=== PATIENT | female | born 1955 | race Asian ===

== ENCOUNTER 2019-05-21 07:24 | Inpatient (IN) | payer OTHER ==
[~2019-05-21] VITALS: Ht 167.6 cm; Wt 47.6 kg
[2019-05-21] MEDS ORDERED: FAMOTIDINE/PF INJ 20 MG/2 ML VIAL IV ONE ×2 (07:38→08:00)
[2019-05-21] MEDS ORDERED: ONDANSETRON HCL/PF 4 MG/2 ML VIAL ONE (07:38)
[2019-05-21] MEDS ORDERED: MAG HYDROX/AL HYDROX/SIMETH 30 ML UDC ONE (07:38)
[2019-05-21] MEDS ORDERED: LIDOCAINE VISCOUS 2% UD 15 ML UDC ONE (07:38)
--- NOTE | 2019-05-21 07:40 | NUR ---
BIB MOTHER, C/O SEVERE ABD PAIN, +NV, +DIARRHEA, SINCE LAST NIGHT, 07/18 PS. PATIENT A/OX3, MOANING AND GROANING, BREATHING EVEN AND UNLABORED, NO SOB NOTED, KEPT PATIENT COMFORTABLE, ATTACHED TO THE [place] ENGINEER, CHANGED INTO GOWN. MD AT BEDSIDE.
[2019-05-21] MEDS: IV NS 0.9% 500 ML BAG IV ONE ×2 (07:49→08:08)
[2019-05-21] MEDS ORDERED: LIDOCAINE VISCOUS 2% UD 15 ML UDC MM ONE (08:00)
[2019-05-21] MEDS ORDERED: ONDANSETRON HCL/PF 4 MG/2 ML VIAL IVP ONE ×2 (08:00→11:15)
[2019-05-21] MEDS ORDERED: MAG HYDROX/AL HYDROX/SIMETH 30 ML UDC PO ONE (08:00)
[2019-05-21] MEDS ORDERED: IV NS 0.9% 1,000 ML BAG IV ONE (08:00)
[2019-05-21 08:08] LABS: BASOPHILS % (AUTO) 0.3 % (0.0-2.0); CALCIUM, SERUM 9.5 mg/dL (8.5-10.1); CARBON DIOXIDE 26 mmol/L (21-32); CHLORIDE 101 mmol/L (98-107); CREATININE 1.7 mg/dL (0.6-1.3); GLUCOSE 347 mg/dL (74-106); HEMATOCRIT 37 % (33-45); HEMOGLOBIN 12.8 g/dL (11.5-14.8); LYMPHOCYTES # (AUTO) 0.5 /CMM (0.8-4.8); LYMPHOCYTES % (AUTO) 5.1 % (20.0-44.0); MEAN CORPUSCULAR HGB CONC 34 g/dl (31.0-36.0); MEAN CORPUSCULAR VOLUME 93 fL (82-100); MONOCYTES # (AUTO) 0.2 /CMM (0.1-1.30); MONOCYTES % (AUTO) 2.3 % (2.0-12.0); NEUTROPHILS # (AUTO) 9.9 /CMM (1.8-8.9); NEUTROPHILS % (AUTO) 92.3 % (43.0-81.0); PLATELET COUNT (AUTO) 263 /CMM (150-450); POTASSIUM 3.9 mmol/L (3.5-5.1); SODIUM SERUM 140 mmol/L (136-145); UREA NITROGEN, BLOOD 33 mg/dL (7-18); WHITE BLOOD COUNT (AUTO) 10.7 K/uL (4.3-11.0)
[2019-05-21 08:14] LABS: ALANINE AMINOTRANSFERASE 19 U/L (12-78); ALBUMIN 3.7 g/dL (3.4-5.0); ALKALINE PHOSPHATASE 61 U/L (46-116); ASPARTATE AMINOTRANSFERASE 15 U/L (15-37); BILIRUBIN,DIRECT 0.1 mg/dL (0.0-0.2); BILIRUBIN,TOTAL 0.4 mg/dL (0.2-1.0); LIPASE 958 U/L (73-393); TOTAL PROTEIN, SERUM 7.2 g/dL (6.4-8.2)
--- NOTE | 2019-05-21 08:15 | NUR ---
PATIENT ASSISTED TO RESTROOM. AMBULATORY WITH STEADY GAIT.
[2019-05-21] MEDS ORDERED: MORPHINE SULFATE INJ 2 MG/ML DISP.SYRIN IV ONE (08:30)
[2019-05-21] MEDS ORDERED: MORPHINE SULFATE INJ 4 MG/ML DISP.SYRIN ONE (08:31)
[2019-05-21] MEDS ORDERED: INSU300I3 SQ (08:37)
[2019-05-21] MEDS ORDERED: METF-442 PO (08:37)
[2019-05-21] MEDS ORDERED: LISI-607 PO (08:37)
[2019-05-21] MEDS ORDERED: EMPA25TA PO (08:37)
--- NOTE | 2019-05-21 08:46 | NUR ---
CHAPARRO ROSSI DNP, SPOKE WITH DR. HARDY.
--- NOTE | 2019-05-21 08:54 | NUR ---
RM 320-2
--- NOTE | 2019-05-21 09:08 | NUR ---
REPORT GIVEN TO JOSUÉ LERMA.
[2019-05-21 09:33] LABS: APPEARANCE,URINE Slightly Cloudy (CLEAR); BILIRUBIN,URINE Negative (NEGATIVE); BLOOD, URINE Large Ery/uL (NEGATIVE); COLOR,URINE Yellow (YELLOW); KETONES,URINE 40 (NEGATIVE); LEUKOCYTE ESTERASE ,URINE Trace (NEGATIVE); NITRITE, URINE Negative (NEGATIVE); PH,URINE 5.5 (5.0-8.0); PROTEIN,URINE Negative (NEGATIVE); UGLUCOSE 500 MG/DL mg/dL (NEGATIVE); UROBILINOGEN,URINE 0.2 EU/dL (0.2)
[2019-05-21 09:36] LABS: BACTERIA,URINE 1+ /HPF (None Seen)
[2019-05-21 09:38] LABS: RBC,URINE 21-50 /HPF (0-2)
--- NOTE | 2019-05-21 09:44 | NUR ---
PATIENT TRANSFERRED TO MED SURG ROOM 320-2, IN NO DISTRESS.
--- NOTE | 2019-05-21 09:45 | NUR ---
MS PLANT MECHANIC NOTE RECEIVED PT VIA GURNEY IN STABLE CONDITION ACCOMPANIED BY 1 ER STAFF. PT IS A/O X4, AFEBRILE. RESPIRATIONS ARE EVEN AND UNLABORED, NOT IN ANY ACUTE DISTRESS NOTED. PUPILS ARE REACTIVE TO LIGHT, BILATERAL HAND RETAIL ANALYST ARE STRONG AND EQUAL. DENIES ANY PAIN OR SOB. C/O NAUSEA AND VOMITING. PT C/O SEVERE ABD PAIN IN ER BUT DENIES ANY ABD PAIN AT THIS TIME. PT IS AMBULATORY WITH STANDBY ASSIST. SKIN IS INTACT, NO OPEN AREAS NOTED. IV ACCESS TO LAC G18 INTACT, NO INFILTRATION NOTED. DRESSING KEPT CLEAN AND DRY. FAMILY AT BEDSIDE. DR. ROSSI MADE AWARE OF ADMISSION W/ ORDERS CARRIED OUT. ALL BELONGINGS ACCOUNTED FOR. SAFETY MEASURES ARE IN PLACE. INSTRUCTED PT TO USE CALL LIGHT WHEN ASSISTANCE IS NEEDED, CALL LIGHT IS LEFT WITHIN REACH. WILL MONITOR THROUGHOUT SHIFT FOR CONTINUITY OF CARE.
[2019-05-21 10:00] VITALS: BP 121/67
[2019-05-21] MEDS ORDERED: LORAZEPAM INJ 2 MG/ML VIAL IV PRN (10:00)
[2019-05-21] MEDS ORDERED: ONDANSETRON HCL/PF 4 MG/2 ML VIAL IVP PRN (10:00)
[2019-05-21] MEDS ORDERED: ACETAMINOPHEN 650 MG/SUPP.RECT RC PRN (10:00)
[2019-05-21] MEDS ORDERED: DEXTROSE 50%-WATER 50 ML DISP.SYRIN IV PRN (10:00)
[2019-05-21] MEDS ORDERED: MORPHINE SULFATE INJ 2 MG/ML DISP.SYRIN IV PRN (10:00)
[2019-05-21] MEDS: FAMOTIDINE/PF INJ 20 MG/2 ML VIAL IV SCH ×2 (10:12→21:08)
--- NOTE | 2019-05-21 10:17 | NUR ---
MS RN NOTES-- PT P/U BY RADIOLOGY FOR CT ABD/PELVIS IN STABLE CONDITION.
[2019-05-21] MEDS: IV NS 0.9% 1,000 ML IV PRN ×2 (10:22→21:08)
[2019-05-21] MEDS: Thiamine 100 MG in IV D5W 50 ML IV SCH (10:36)
--- NOTE | 2019-05-21 10:45 | NUR ---
MS RN NOTES-- PT CAME BACK FROM RADIOLOGY IN STABLE CONDITION.
[2019-05-21] MEDS: BLOOD SUGAR DIAGNOSTIC 1 EACH STRIP IN SCH ×3 (11:28→23:34)
[2019-05-21] MEDS: CEFTRIAXONE 1 G in IV D5W 50 ML IV SCH (11:28)
[2019-05-21] MEDS ORDERED: METOCLOPRAMIDE HCL 10 MG/2 ML VIAL IV PRN (12:00)
--- NOTE | 2019-05-21 15:30 | NUR ---
MS RN NOTES-- PT IS AWAKE, ALERT AND RESPONSIVE. TALKING WITH HER MOTHER ON THE PHONE, AT BEDSIDE. PT DENIES ANY N/V, PAIN. WILL CONTINUE TO MONITOR.
[2019-05-21 16:00] VITALS: BP 119/65
--- NOTE | 2019-05-21 17:12 | NUR ---
MS RN NOTES-- PT WAITING TO SEE GI. NOTIFIED TRISTIAN SERRA AND WAITING A CALL BACK. DR. ROSSI ALSO AWARE.
--- NOTE | 2019-05-21 18:23 | NUR ---
MS RN CLOSING NOTES ALL NEEDS MET AND RENDERED. PT IS A/O X4, AFEBRILE. RESPIRATIONS ARE EVEN AND UNLABORED, NOT IN ANY ACUTE DISTRESS NOTED. PT DENIES ANY PAIN AT THIS TIME, NO C/O SOB, N/V. IV SITE TO LAC INTACT, NO INFILTRATION NOTED. DRESSING KEPT CLEAN AND DRY. SAFETY MEASURES ARE IN PLACE. REMINDED PT TO USE CALL LIGHT WHEN ASSISTANCE IS NEEDED, CALL LIGHT IS LEFT WITHIN REACH. WILL ENDORSE TO NEXT SHIFT FOR CONTINUITY OF CARE.
--- NOTE | 2019-05-21 19:00 | NUR ---
MS/RN OPENING NOTES PT RECEIVED AWAKE, SITTING UP IN BED. FAMILY MEMBERS AT BEDSIDE. A/OX4. ON ROOM AIR, BREATHING EVEN AND UNLABORED. DENIES SOB AND PAIN AT THIS TIME. NO N/V/D. IV TO LAC PATENT AND INTACT RUNNING IVF ORDERED. NO ABDOMINAL DISTENTION OR DISCOMFORT NOTED. WAITING FOR TRISTIAN SERRA TO SEE THE PATIENT. BED IN LOW/LOCKED POSITION WITH CALL LIGHT IN REACH. HOB ELEVATED AND BILAT. UPPER SIDE RAILS IN PLACE. WILL CONTINUE TO MONITOR
[2019-05-21 20:00] VITALS: BP 108/62
--- NOTE | 2019-05-21 20:00 | NUR ---
MS/RN NOTES PONCE MONTAÑO AT BEDSIDE FOR ASSESSMENT
[2019-05-21 20:56] VITALS: BP 108/62
--- NOTE | 2019-05-21 23:40 | NUR ---
MS/RN NOTES BGL 62, GAVE 2 APPLE JUICES. WILL [place] Addendum: 05/22/19 at 0045 by VINCENT DENNISON RN BGL KIKOECK= [id number]
[2019-05-21] MEDS: INSULIN REGULAR, HUMAN 100 UNIT/ML 3 ML VIAL SQ PRN (23:55)
--- NOTE | 2019-05-22 03:39 | NUR ---
MS/RN NOTES IV TO LAC LEAKING. REMOVED WITH CATHETER TIP INTACT. NEW IV INSERTED TO RFA #22, GOOD BLOOD RETURN NOTED AND FLUSHES WELL. IVF RESUMED
[2019-05-22] MEDS: BLOOD SUGAR DIAGNOSTIC 1 EACH STRIP IN SCH ×2 (05:46→12:49)
[2019-05-22] MEDS: INSULIN REGULAR, HUMAN 100 UNIT/ML 3 ML VIAL SQ PRN (05:46)
[2019-05-22] MEDS: IV NS 0.9% 1,000 ML IV PRN (05:46)
[2019-05-22] MEDS: ACETAMINOPHEN 325 MG TABLET PO PRN ×2 (05:48→16:48)
--- NOTE | 2019-05-22 05:53 | NUR ---
MS/RN NOTES PT C/O HEADACHE. ADMINISTERED PRN TYLENOL ORDERED.
--- NOTE | 2019-05-22 06:20 | NUR ---
MS/RN CLOSING NOTES PT RESTING COMFORTABLY IN BED. A/OX4. REMAINS ON ROOM AIR, BREATHING EVEN AND UNLABORED. DENIES SOB AND ABDOMINAL PAIN. DENIES N/V/D, AFEBRILE, NO CHILLS DURING SHIFT. IV TO RFA PATENT AND INTACT RUNNING NS AT 125ML/HR. NO SIGNIFICANT CHANGES OVERNIGHT. ALL NEEDS MET AND ANTICIPATED. TOLERATING CLEAR LIQUIDS. ADAT PER PONCE MONTAÑO. BED IN LOW/LOCKED POSITION WITH CALL LIGHT IN REACH. HOB ELEVATED AND BILAT. UPPER SIDE RAILS IN PLACE. WILL ENDORSE TO ONCOMING DAY SHIFT INES
[2019-05-22 06:30] LABS: BASOPHILS % (AUTO) 0.4 % (0.0-2.0); EOSINOPHILS % (AUTO) 0.4 % (0.0-6.0); HEMATOCRIT 33 % (33-45); HEMOGLOBIN 11.1 g/dL (11.5-14.8); LYMPHOCYTES # (AUTO) 1.6 /CMM (0.8-4.8); LYMPHOCYTES % (AUTO) 19.9 % (20.0-44.0); MEAN CORPUSCULAR HGB CONC 34 g/dl (31.0-36.0); MEAN CORPUSCULAR VOLUME 93 fL (82-100); MONOCYTES # (AUTO) 0.5 /CMM (0.1-1.30); MONOCYTES % (AUTO) 6.5 % (2.0-12.0); NEUTROPHILS # (AUTO) 5.8 /CMM (1.8-8.9); NEUTROPHILS % (AUTO) 72.8 % (43.0-81.0); PLATELET COUNT (AUTO) 234 /CMM (150-450); WHITE BLOOD COUNT (AUTO) 7.9 K/uL (4.3-11.0)
[2019-05-22 06:48] LABS: CALCIUM, SERUM 8.2 mg/dL (8.5-10.1); MAGNESIUM 1.8 mg/dL (1.8-2.4); PHOSPHORUS 3.3 mg/dL (2.5-4.9); POTASSIUM 3.6 mmol/L (3.5-5.1)
[2019-05-22 08:00] VITALS: BP_SYST 113; BP_DIAS 65; BP_DIAS 66
--- NOTE | 2019-05-22 08:00 | NUR ---
MS/RN AM NOTES PT RESTING COMFORTABLY IN BED. A/OX4. REMAINS ON ROOM AIR, BREATHING EVEN AND UNLABORED. DENIES SOB AND ABDOMINAL PAIN. DENIES N/V/D, AFEBRILE, NO CHILLS DURING SHIFT. IV TO RFA PATENT AND INTACT RUNNING NS AT 125ML/HR.TOLERATING CLEAR LIQUIDS. ADVANCED PRESENT DIET TO SOFT CCHO.BED IN LOW/LOCKED POSITION WITH CALL LIGHT IN REACH. HOB ELEVATED AND BILAT. UPPER SIDE RAILS IN PLACE.
[2019-05-22] MEDS: FAMOTIDINE/PF INJ 20 MG/2 ML VIAL IV SCH (08:35)
[2019-05-22] MEDS: CEFTRIAXONE 1 G in IV D5W 50 ML IV SCH (10:00)
[2019-05-22] MEDS: Thiamine 100 MG in IV D5W 50 ML IV SCH (11:07)
[2019-05-22 16:00] VITALS: BP 121/90
--- NOTE | 2019-05-22 17:53 | NUR ---
DISCHARGED PT HOME VIA PRIVATE CAR ACCOMPANIED BY HER MOM AND - WITH STABLE V/S.IV H/L REMOVED TO RFA WITHOUT BLEEDING NOTED.PT DENIES ANY PAIN OR DISTRESS.CALL LIGHT PLACED WITHIN REACH.
== END 2019-05-22 17:50 | disposition home or self-care (01) | DRG 438 ==
LOC: ER 07:24 → MED 09:12
PROVIDERS: ADMIT Nurse Practitioner Acute Care; ATTEND Nurse Practitioner Acute Care
DX: K85.90 Acute pancreatitis without necrosis or infection, unspecified (principal); N17.0 Acute kidney failure with tubular necrosis; E44.0 Moderate protein-calorie malnutrition; N39.0 Urinary tract infection, site not specified; Z68.1 Body mass index [BMI] 19.9 or less, adult; K57.32 Diverticulitis of large intestine without perforation or abscess without bleeding; Z79.4 Long term (current) use of insulin; Z79.84 Long term (current) use of oral hypoglycemic drugs; Z79.899 Other long term (current) drug therapy; B96.89 Other specified bacterial agents as the cause of diseases classified elsewhere; E11.65 Type 2 diabetes mellitus with hyperglycemia; Z90.49 Acquired absence of other specified parts of digestive tract; Z87.891 Personal history of nicotine dependence; F10.20 Alcohol dependence, uncomplicated; Y90.9 Presence of alcohol in blood, level not specified; Z98.890 Other specified postprocedural states; N20.0 Calculus of kidney; I10 Essential (primary) hypertension; I70.0 Atherosclerosis of aorta; K80.20 Calculus of gallbladder without cholecystitis without obstruction
CPT/HCPCS: 36415; 71045-TC; 71250-TC; 76705-TC; 80048-TC; 80061-TC; 80076-TC; 81000-TC; 82010-TC; 82962-TC; 83690-TC; 83735-TC; 84100-TC; 84484-TC; 85025-TC; 87081-TC; 87086-TC; 87186-TC; G0378; J0696; J1815; J2270; J2405; J3411; J3490; J7030; J7040; J7060